=== PATIENT | female | born 1995 | race African-American/Black ===

== ENCOUNTER 2016-09-24 01:57 | Emergency (ER) | payer SELFPAY ==
[2016-09-24 02:03] VITALS: BP 123/91; BMI 35.4
--- NOTE | 2016-09-24 02:10 | DR.GENAD ---
HPI - PCP Primary Care Physician: NFD - Complaint/Symptoms Chief Complaint:: PT STATES' MAINLY MY STOMACH HURTS BUT I'M [employer] AND I WAS RUNNING A FEVER, I TOOK A MOTRIN AND IT HELPED WITH THE FEVER, MY STOMACH IS HURTING ME BAD" - Nurses notes reviewed Nurses Notes Review: Yes - Source History Provided: Patient - Mode of Arrival Mode of Arrival: Ambulatory - Timing Onset of Chief Complaint: 09/23/16 Came on: Gradually - Duration Duration: Constant How lon Duration: Days - Location Location: stomach - Severity Severity: Moderate - Modifying Factors Worsens:: unknown - Associated Signs and Symptoms Associated Signs and Symptoms: achy all over PMH - PMH Past Medical History: Yes Past Medical History: GERD Past Surgical History: Yes Surgical History: Ortho Surgery Past Surgical History Comment: RT ANKLE - Family History History of Family Medical Conditions: Yes Family Medical History: Diabetes Mellitus, Cancer, [place], Coronary Artery Disease, Heart Failure, Hypertension - Social History Does any household member use tobacco: No Alcohol Use: None Do you use any recreational Drugs:: No Lives With: Family Lives Where: Home - infectious screening In the last 2 months have you had wt loss of >10#?: NO Have you had fever, night sweats or hemotysis?: No Have you traveled outside the country in the last 6 months?: No Isolation: Standard ROS - Review of Systems Constitutional: No Symptoms Reported Eyes: No Symptoms Reported ENTM: No Symptoms Reported Respiratoy: No Symptoms Reported Cardiovascular: No Symptoms Reported Gastrointestinal/Abdominal: Abdominal Pain Genitourinary: No Symptoms Reported Neurological: No Symptoms Reported Musculoskeletal: Muscle Pain Integumentary: No Symptoms Reported Hematologic/Lymphatic: No Symptoms Reported Endocrine: No Symptoms Reported Psychiatric: No Symptoms Reported PE - Vital Signs Vitals: Temperature 97.6 F Pulse Rate 100 Respiratory Rate 16 Blood Pressure [Right Arm] 111/79 Blood Pressure 123/91 O2 Sat by Pulse Oximetry 100 - General Limitations: No Limitations General Appearance: Alert, In No Apparent Distress - Head Head Exam: Normal Inspection - Eyes Eye exam: Normal Appearance, EOMI. negative: Scleral Icterus, Conjunctival Injection - ENT ENT Exam: Normal Exam External Ear Exam: Normal External Inspection Nose Exam: Normal Nose Exam Mouth Exam: Normal Inspection Throat Exam: Normal Inspection - Neck Neck Exam: Normal Inspection, Full ROM, Trachea Midline - Chest Chest Inspection: Normal Inspection - Respiratory Respiratory Exam: Normal Lung Sounds Bilat. negative: Accessory Muscle Use, Respiratory Distress Respiratory Exam: Bilateral Clear to Auscultation - Cardiovascular Cardiovascular Exam: Regular Rate - Abdominal Exam Abdominal Exam: Normal Inspection, Normal Bowel Sounds, Soft. negative: Distention, Tenderness, Guarding - Extremities Extremities Exam: Normal Inspection - Back Back Exam: Normal Inspection - Neurologic Neurological Exam: Alert, Oriented X3, CN II-XII Intact - Psychiatric Psychiatric Exam: Normal Mood - Skin Skin Exam: Intact, Normal Color ROR - Labs Reviewed Laboratory: Specimen Type Clean catch urine 09/24/16 02:20 Urine Color Yellow (YELLOW) 09/24/16 02:20 Urine Appearance Hazy (CLEAR) 09/24/16 02:20 Urine pH 6.0 (5.0 - 8.0) 09/24/16 02:20 Ur Specific [place] 1.025 (1.000-1.030) 09/24/16 02:20 Urine Protein 1+ (NEGATIVE) 09/24/16 02:20 Urine Glucose (UA) Negative (NEGATIVE) 09/24/16 02:20 Urine Ketones Negative (NEGATIVE) 09/24/16 02:20 Urine Occult Blood 2+ (NEGATIVE) 09/24/16 02:20 Urine Nitrite Negative (NEGATIVE) 09/24/16 02:20 Urine Bilirubin Negative (NEGATIVE) 09/24/16 02:20 Urine Urobilinogen 1+ (NORMAL) 09/24/16 02:20 Ur Leukocyte Esterase Negative (NEGATIVE) 09/24/16 02:20 Urine RBC 0-3 /HPF (NEGATIVE) 09/24/16 02:20 Urine WBC 0-3 /HPF (NEGATIVE) 09/24/16 02:20 Ur Squamous Epith Cells Numerous /HPF (NEGATIVE) 09/24/16 02:20 Amorphous Sediment Trace /HPF (NEGATIVE) 09/24/16 02:20 Urine Bacteria Trace /HPF (NEGATIVE) 09/24/16 02:20 Urine Mucus Few /HPF (NEGATIVE) 09/24/16 02:20 Ur Culture Indicated? No/not indicated 09/24/16 02:20 Urine Opiates Screen Negative (NEG=<300) 09/24/16 02:20 Urine Methadone Screen Negative (NEG=<300) 09/24/16 02:20 Ur Barbiturates Screen Negative (NEG=<200) 09/24/16 02:20 Ur Phencyclidine Scrn Negative (NEG=<25) 09/24/16 02:20 Ur Amphetamines Screen Negative (NEG=<1000) 09/24/16 02:20 U Benzodiazepines Scrn Negative (NEG=<200) 09/24/16 02:20 Urine Cocaine Screen Negative (NEG=<300) 09/24/16 02:20 U Marijuana (THC) Screen Negative (NEG=<50) 09/24/16 02:20 H. pylori IgG Antibody Negative (NEGATIVE) 09/24/16 02:37 - Diagnosis Discharge Problem: Abdominal pain Qualifiers: Abdominal location: epigastric Qualified Code(s): R10.13 - Epigastric pain - Discharge Plan Condition: Stable Prescriptions: Famotidine-Calcium Carbonate-M [Pepcid Complete 10-800-165 mg] 1 chw PO BID #30 chw - Follow ups/Referrals Follow ups/Referrals: ISAI CLARKE [STAFF PHYSICIAN] - 3 days NFD,None [Primary Care Provider] - 3 days - Instructions Instructions: Gastritis, Adult
[2016-09-24 02:34] LABS: BILIRUBIN,URINE NEGATIVE (NEGATIVE); BLOOD/HEMOGLOBIN,URINE 2+ (NEGATIVE); GLUCOSE, URINE NEGATIVE (NEGATIVE); KETONES,URINE NEGATIVE (NEGATIVE); LEUKOCYTE ESTERASE ,URINE NEGATIVE (NEGATIVE); NITRITES,URINE NEGATIVE (NEGATIVE); PROTEIN,URINE 1+ (NEGATIVE); UROBILINOGEN,URINE 1+ (NORMAL)
[2016-09-24] MEDS ORDERED: LEVSIN/MAALOX/LIDOC VISC PO ONE (02:55)
[2016-09-24] MEDS ORDERED: LEVSIN/MAALOX/LIDOC VISC ONE (02:57)
[2016-09-24 03:07] LABS: AMORPHOUS SEDIMENT,UR TRACE /HPF (NEGATIVE); APPEARANCE,URINE HAZY (CLEAR); BACTERIA,URINE TRACE /HPF (NEGATIVE); COLOR,URINE YELLOW (YELLOW); MUCUS,URINE FEW /HPF (NEGATIVE); RBC,URINE 0-3 /HPF (NEGATIVE); SQUAMOUS EPITHELIAL CELL,UR NUMEROUS /HPF (NEGATIVE)
== END 2016-09-24 03:20 | disposition home or self-care (01) ==
LOC: ER 01:57
DX: R10.13 Epigastric pain (principal)
CPT/HCPCS: 36415; 80307; 81001; 86677; 99282; 99283; G0434

== ENCOUNTER 2016-11-08 06:47 | Emergency (ER) | payer SELFPAY ==
[2016-11-08 06:51] VITALS: BP 115/72; BMI 33.6
[2016-11-08 07:49] LABS: BASOPHILS % (AUTO) 0.4 % (0.2-1.0); EOSINOPHILS % (AUTO) 0.5 % (0.9-2.9); HEMATOCRIT 35.2 % (36.0-47.0); HEMOGLOBIN 11.9 g/dL (12.0-16.0); LYMPHOCYTES # (AUTO) 2.6 X10^3/uL (1.3-2.9); LYMPHOCYTES % (AUTO) 32.3 % (21.0-51.0); MEAN CORPUSCULAR HEMOGLOBIN 27.2 pg (27.0-34.0); MEAN CORPUSCULAR HGB CONC 33.7 g/dL (33.0-35.0); MEAN CORPUSCULAR VOLUME 80.7 fL (80.0-100.0); MEAN PLATELET VOLUME 8.5 fL (7.4-11.0); MONOCYTES # (AUTO) 0.9 x10^3/uL (0.3-0.8); MONOCYTES % (AUTO) 10.7 % (0.0-13.0); NEUTROPHILS # (AUTO) 4.5 x10^3/uL (2.2-4.8); NEUTROPHILS % (AUTO) 56.1 % (42.0-75.0); PLATELET COUNT 245 X10^3/uL (150.0-450.0); RED BLOOD COUNT 4.36 X10^6/uL (3.5-5.4); RED CELL DISTRIBUTION WIDTH 13.5 % (11.6-16.5); WHITE BLOOD COUNT 8.1 X10^3/uL (3.6-10.0)
--- NOTE | 2016-11-08 07:50 | DR.GENAD ---
HPI - PCP Primary Care Physician: ELIAS - HPI Comment HPI Comment: HISTORY BELOW. - Complaint/Symptoms Chief Complaint Doctors Comments: N/V/D TIMES TIMES ONE DAY. PERIOD LATE. ALWAAYS IRREGULAR. CHILD HAD STOMACH VIRUS BEFORE HE SYMTOM STARTED. NO FEVER. Chief Complaint:: "I have felt sick for a couple of days now but last night I started thowing up. I have had diarhea for about 2 days though." - Nurses notes reviewed Nurses Notes Review: Yes - Source History Provided: Patient - Mode of Arrival Mode of Arrival: Ambulatory - Timing Onset of Chief Complaint: 11/05/16 Came on: Suddenly - Duration Duration: Constant Duration: Days - Severity Severity: Moderate PMH - PMH Past Medical History: No Past Medical History: GERD Past Surgical History: No Surgical History: Ortho Surgery - Family History History of Family Medical Conditions: Yes Family Medical History: Diabetes Mellitus, Cancer, Hypertension - Social History Does patient currently use any type of tobacco product: No Have you used tobacco products in the last 12 months: No Type of Tobacco Use: None Does any household member use tobacco: No Alcohol Use: None Do you use any recreational Drugs:: No Lives With: Family Lives Where: Home - infectious screening In the last 2 months have you had wt loss of >10#?: NO Have you had fever, night sweats or hemotysis?: No Have you traveled outside the country in the last 6 months?: No Isolation: Standard ROS - Review of Systems Constitutional: Weakness. negative: Chills Eyes: No Symptoms Reported ENTM: No Symptoms Reported Respiratoy: No Symptoms Reported Cardiovascular: No Symptoms Reported Gastrointestinal/Abdominal: Abdominal Pain, Diarrhea, Nausea, Vomiting Genitourinary: No Symptoms Reported. negative: Dysuria, Frequency, Hematuria Neurological: Headache, Weakness Musculoskeletal: No Symptoms Reported Integumentary: No Symptoms Reported Hematologic/Lymphatic: No Symptoms Reported Endocrine: No Symptoms Reported All Other Systems: Reviewed and Negative PE - Vital Signs Vitals: Temperature 98.2 F Pulse Rate 93 Respiratory Rate 15 Blood Pressure [Right Arm] 111/79 Blood Pressure 115/72 O2 Sat by Pulse Oximetry 100 - General Limitations: No Limitations General Appearance: Alert - Head Head Exam: Normal Inspection - Eyes Eye exam: Normal Appearance - ENT ENT Exam: Normal Exam External Ear Exam: Normal External Inspection TM/Canal Exam: Bilateral Normal Nose Exam: Normal Nose Exam Mouth Exam: Normal Inspection Throat Exam: Normal Inspection - Neck Neck Exam: Normal Inspection - Chest Chest Inspection: Normal Inspection - Respiratory Respiratory Exam: Normal Lung Sounds Bilat Respiratory Exam: Bilateral Clear to Auscultation - Cardiovascular Cardiovascular Exam: Regular Rate, Normal Rhythm, Normal Heart Sounds - Abdominal Exam Abdominal Exam: Normal Bowel Sounds, Soft, Tenderness Abdominal Tenderness: Diffuse, Mild - Extremities Extremities Exam: Normal Inspection - Back Back Exam: Normal Inspection - Neurologic Neurological Exam: Alert, Oriented X3 - Psychiatric Psychiatric Exam: Normal Affect - Skin Skin Exam: Normal Color [facility] - Additional Information Additional Information Obtained From: Family - Differential Diagnosis Differential Diagnosis: GASTROENTERITIS, ABDOMINAL PAIN, LATE PERIOD. Course - Treatment Treatment: SEE ORDERS. - Education/Counseling Education/Counseling: Patient, Education Educated On: Diagnosis, Needs for Follow Up ROR - Labs Reviewed Laboratory Results Reviewed?: Yes Result Diagrams: 11/08/16 07:29 11/08/16 07:29 Laboratory: WBC 8.1 X10^3/uL (3.6-10.0) 11/08/16 07: RBC 4.36 X10^6/uL (3.5-5.4) 11/08/16 07: Hgb 11.9 g/dL (12.0-16.0) L 11/08/16 07: Hct 35.2 % (36.0-47.0) L 11/08/16 07: MCV 80.7 fL (80.0-100.0) 11/08/16 07: MCH 27.2 pg (27.0-34.0) 11/08/16 07: MCHC 33.7 g/dL (33.0-35.0) 11/08/16 07: RDW 13.5 % (11.6-16.5) 11/08/16 07: Plt Count 245 X10^3/uL (150.0-450.0) 11/08/16 07: MPV 8.5 fL (7.4-11.0) 11/08/16 07: Neut % 56.1 % (42.0-75.0) 11/08/16 07: Lymph % 32.3 % (21.0-51.0) 11/08/16 07: [place] % 10.7 % (0.0-13.0) 11/08/16 07: Eos % 0.5 % (0.9-2.9) L 11/08/16 07:29 Baso % 0.4 % (0.2-1.0) 11/08/16 07:29 Neut # 4.5 x10^3/uL (2.2-4.8) 11/08/16 07:29 Lymph # 2.6 X10^3/uL (1.3-2.9) 11/08/16 07:29 [place] # 0.9 x10^3/uL (0.3-0.8) H 11/08/16 07:29 Eos # 0.0 x10^3/uL (0.0-0.2) 11/08/16 07: Baso # 0.0 X10^3/uL (0.0-0.1) 11/08/16 07:29 Absolute Nucleated RBC 0.1 /100WBC 11/08/16 07:29 Sodium 140 mmol/L (136-145) 11/08/16 07:29 Corrected Sodium TNP 11/08/16 07:29 Potassium 3.9 mmol/L (3.5-5.1) 11/08/16 07:29 Chloride 104 mmol/L (98-107) 11/08/16 07:29 Carbon Dioxide 27.0 mmol/L (21-32) 11/08/16 07:29 BUN 13 mg/dL (7-18) 11/08/16 07:29 Creatinine 0.60 mg/dL (0.55-1.02) 11/08/16 07:29 Est GFR (MDRD) Af Amer > 60 (>60) 11/08/16 07:29 Est GFR (MDRD) Non-Af > 60 (>60) 11/08/16 07:29 Glucose 89 mg/dL (65-99) 11/08/16 07:29 Calcium 8.3 mg/dL (8.5-10.1) L 11/08/16 07:29 Corrected Calcium TNP 11/08/16 07:29 Total Bilirubin 0.30 mg/dL (0.2-1.0) 11/08/16 07:29 AST 18 Units/L (15-37) 11/08/16 07:29 ALT 39 Units/L (12-78) 11/08/16 07:29 Alkaline Phosphatase 105 Units/L (46-116) 11/08/16 07:29 Total Protein 7.3 g/dL (6.4-8.2) 11/08/16 07:29 Albumin 3.7 g/dL (3.4-5.0) 11/08/16 07: Globulin 3.6 g/dL (2.5-4.5) 11/08/16 07:29 Albumin/Globulin Ratio 1.0 Ratio (1.1-2.1) L 11/08/16 07:29 Amylase 41 Units/L (25-115) 11/08/16 07: Lipase 82 Units/L (73-393) 11/08/16 07:29 HCG, Qual Negative <10 mIU/mL 11/08/16 07:29 Specimen Type Clean catch urine 11/08/16 07:33 Urine Color Yellow (YELLOW) 11/08/16 07:33 Urine Appearance Slightly hazy (CLEAR) 11/08/16 07:33 Urine pH 5.0 (5.0 - 8.0) 11/08/16 07:33 Ur Specific [place] 1.030 (1.000-1.030) 11/08/16 07:33 Urine Protein 1+ (NEGATIVE) 11/08/16 07:33 Urine Glucose (UA) Negative (NEGATIVE) 11/08/16 07:33 Urine Ketones 1+ (NEGATIVE) 11/08/16 07:33 Urine Occult Blood Negative (NEGATIVE) 11/08/16 07:33 Urine Nitrite Negative (NEGATIVE) 11/08/16 07:33 Urine Bilirubin Negative (NEGATIVE) 11/08/16 07:33 Urine Urobilinogen 1+ (NORMAL) 11/08/16 07:33 Ur Leukocyte Esterase Negative (NEGATIVE) 11/08/16 07:33 Urine RBC Negative /HPF (NEGATIVE) 11/08/16 07:33 Urine WBC Rare /HPF (NEGATIVE) 11/08/16 07:33 Ur Squamous Epith Cells Moderate /HPF (NEGATIVE) 11/08/16 07:33 Urine Bacteria Negative /HPF (NEGATIVE) 11/08/16 07:33 Ur Culture Indicated? No/not indicated 11/08/16 07:33 - Diagnosis Discharge Problem: Gastroenteritis - Discharge Plan Disposition: 01 HOME, SELF-CARE Condition: Stable Prescriptions: Diphenoxylate/Atropine [LOMOTIL TAB *] 1 tab PO TID PRN #15 tab PRN Reason: Ondansetron HCl [ZOFRAN TAB 4 MG *] 4 mg PO Q8H PRN #12 tab PRN Reason: Nausea/Vomiting - Follow ups/Referrals Follow ups/Referrals: NFD,None [Primary Care Provider] - 3 days - Instructions Instructions: Viral Gastroenteritis, Adult, [id number] Additional Instructions: RETURN TO ED IF WORSE.
[2016-11-08 07:58] LABS: BILIRUBIN,URINE NEGATIVE (NEGATIVE); BLOOD/HEMOGLOBIN,URINE NEGATIVE (NEGATIVE); GLUCOSE, URINE NEGATIVE (NEGATIVE); KETONES,URINE 1+ (NEGATIVE); LEUKOCYTE ESTERASE ,URINE NEGATIVE (NEGATIVE); NITRITES,URINE NEGATIVE (NEGATIVE); PROTEIN,URINE 1+ (NEGATIVE); UROBILINOGEN,URINE 1+ (NORMAL)
[2016-11-08 08:14] LABS: ALANINE AMINOTRANSFERASE 39 Units/L (12-78); ALBUMIN 3.7 g/dL (3.4-5.0); ALKALINE PHOSPHATASE 105 Units/L (46-116); AMYLASE 41 Units/L (25-115); ASPARTATE AMINO TRANSFERASE 18 Units/L (15-37); BLOOD UREA NITROGEN 13 mg/dL (7-18); CALCIUM 8.3 mg/dL (8.5-10.1); CHLORIDE 104 mmol/L (98-107); GLUCOSE 89 mg/dL (65-99); LIPASE 82 Units/L (73-393); SODIUM 140 mmol/L (136-145); TOTAL PROTEIN 7.3 g/dL (6.4-8.2); eGFR BLACK RACES > 60 (>60); eGFR NON BLACK RACES > 60 (>60)
[2016-11-08 08:20] LABS: APPEARANCE,URINE SLIGHTLY HAZY (CLEAR); COLOR,URINE YELLOW (YELLOW)
[2016-11-08 08:22] LABS: BACTERIA,URINE NEGATIVE /HPF (NEGATIVE); RBC,URINE NEGATIVE /HPF (NEGATIVE); SQUAMOUS EPITHELIAL CELL,UR MODERATE /HPF (NEGATIVE)
[2016-11-08 08:42] LABS: SERUM PREGNANCY TEST, QUAL NEGATIVE <10 mIU/mL
== END 2016-11-08 08:44 | disposition home or self-care (01) ==
LOC: ER 06:47
DX: K52.89 Other specified noninfective gastroenteritis and colitis (principal)
CPT/HCPCS: 36415; 80053; 81001; 82150; 83690; 84703; 85025; 99282

== ENCOUNTER 2017-02-07 07:05 | Emergency (ER) | payer SELFPAY ==
[2017-02-07 07:10] VITALS: BP 128/75; BMI 35.4
[2017-02-07] MEDS ORDERED: ZOFRAN INJ 4 MG VIAL IM ONE (07:36)
[2017-02-07] MEDS ORDERED: LOMOTIL PO ONE (07:37)
[2017-02-07] MEDS ORDERED: ZOFRAN INJ 4 MG VIAL ONE (07:40)
[2017-02-07] MEDS ORDERED: LOMOTIL ONE (07:40)
--- NOTE | 2017-02-07 07:42 | DR.GENAD ---
HPI - PCP Primary Care Physician: NFD - Complaint/Symptoms Chief Complaint Doctors Comments: Patient complains of vomiting with diarrhea for the past two days. states she has several people sick at her house with simlar problems. states she has had diarrhea x3 and vomited x4 in the last 6 - 12 hours. She denies fever, chills, cold or cough. states her appetite is good but she has not had anything to eat recently because she has been working. states her last period was two days ago and she is not taking any contraceptives. States she smokes at [employer] but it is not a regular thing. She denies alcohol or drug usage. She denies abdominal or chest pain. She denies dysuria, dianelys or hematuria. Chief Complaint:: "THROWING UP AND DIARRHEA" - Nurses notes reviewed Nurses Notes Review: Yes - Source History Provided: Patient - Mode of Arrival Mode of Arrival: Ambulatory - Timing Onset of Chief Complaint: 02/05/17 Came on: Gradually - Duration Duration: Intermittent How lon Duration: Hours - Location Location: vomiting and diarrhea - Severity Severity: Mild - Modifying Factors Worsens:: nothing Improves:: nothing PMH - PMH Past Medical History: No Past Medical History: GERD Past Surgical History: No Surgical History: Ortho Surgery - Family History History of Family Medical Conditions: No Family Medical History: Diabetes Mellitus, Cancer, Hypertension - Social History Type of Tobacco Use: Cigarettes Does any household member use tobacco: No Alcohol Use: None Do you use any recreational Drugs:: No Lives With: Family Lives Where: Home - infectious screening In the last 2 months have you had wt loss of >10#?: NO Have you had fever, night sweats or hemotysis?: No Have you traveled outside the country in the last 6 months?: No Isolation: Standard ROS - Review of Systems Constitutional: No Symptoms Reported. negative: See HPI, Chills, Diaphoresis, Fever, Malaise, Weakness, Irritable, Fatigue, Loss of Appetite, Other Eyes: No Symptoms Reported ENTM: No Symptoms Reported, Nose Discharge, Nose Congestion. negative: See HPI , Ear Pain, Ear Discharge, Pulling on Ears, Hearing Loss, Nose Pain, Epistaxis, Mouth Pain, Mouth Swelling, Loose Teeth, Drooling, Throat Pain, Throat Swelling , Ear Foreign Body Respiratoy: No Symptoms Reported. negative: See HPI, Productive Cough, Non- Productive Cough, Moist Cough, Dry Cough, Hacking Cough, Barking Cough, Brassy Cough, Orthopnea, Short of Breath, Stridor, Wheezing, Hemoptysis, Other Cardiovascular: No Symptoms Reported Gastrointestinal/Abdominal: No Symptoms Reported, Diarrhea, Nausea, Vomiting. negative: See HPI, Abdominal Pain, Constipation, Food Intolerance, Other Genitourinary: No Symptoms Reported. negative: See HPI, Discharge, Dysuria, Frequency, Hematuria, Pain, Bleeding, Other Neurological: No Symptoms Reported Musculoskeletal: No Symptoms Reported Integumentary: No Symptoms Reported. negative: See HPI, Change in Color, Change in Hair/Nails, Dryness, Lesions, Lumps, Rash, Itching, Wound, Bruises, Juandice, Other Hematologic/Lymphatic: No Symptoms Reported Endocrine: No Symptoms Reported Psychiatric: No Symptoms Reported. negative: See HPI, Anxiety, Depression, Hallucinations, Excessive crying, Suicidal, Other PE - Vital Signs Vitals: Temperature 98.6 F Pulse Rate 88 Respiratory Rate 20 Blood Pressure [Right Arm] 111/79 Blood Pressure 128/75 O2 Sat by Pulse Oximetry 100 - General Limitations: No Limitations General Appearance: Alert, In No Apparent Distress - Head Head Exam: Normal Inspection, Atraumatic, Normocephalic - Eyes Eye exam: Normal Appearance, PERRL, EOMI. negative: Scleral Icterus, Conjunctival Injection, Nystagmus, Miosis, Mydrasis, Periorbital Swelling, Periorbital Tenderness, Other - ENT ENT Exam: Normal Exam, Normal Oropharynx, Normal External Ear Exam, Mucous Membranes Moist, TM's Normal Bilaterally External Ear Exam: Normal External Inspection TM/Canal Exam: Bilateral Normal Nose Exam: Normal Nose Exam. negative: Sinus Tenderness, Nasal Deviation, Crepitus, Septal Hematoma, Laceration, Abrasion, Other Mouth Exam: Normal Inspection Throat Exam: Normal Inspection. negative: Tonsillar Erythema, Tonsillomegaly, Tonsillar Exudate, R Peritonsillar Mass, L Peritonsillar Mass, Muffled Voice, Other - Neck Neck Exam: Normal Inspection, Full ROM, Trachea Midline. negative: Tenderness, Meningismus, Lymphadenopathy, Thyromegaly, Other - Chest Chest Inspection: Normal Inspection, Symmetric Chest Wall Rise - Respiratory Respiratory Exam: Normal Lung Sounds Bilat Respiratory Exam: Bilateral Clear to Auscultation - Cardiovascular Cardiovascular Exam: Regular Rate, Normal Rhythm, Normal Heart Sounds. negative : Bradycardia, Tachycardia, Irregular Rhythm, Systolic Murmur, Diastolic Murmur , Rubs, Gallop, Clicks, JVD, +S1, +S2, +S3, +S4, Other - Abdominal Exam Abdominal Exam: Normal Inspection, Normal Bowel Sounds, Soft. negative: Distention, Tenderness, Guarding, Rebound, Rigidity, Dimnished Bowel Sounds, Hyperactive Bowel Sounds, Hypoactive Bowel Sounds, Organomegaly, Trauma, Incision, Ascites, Mass, Bruit, Pulsatile Mass, Hernia, Other Abdominal Tenderness: negative: RUQ, RLQ, LUQ, LLQ, Epigastrium, Suprapubic, Diffuse, Mild, Moderate, Severe, Other - Extremities Extremities Exam: Normal Inspection, Full ROM, Normal Capillary Refill. negative: Tenderness, Edema, Joint Swelling, Calf Tenderness, Other - Back Back Exam: Normal Inspection, Full ROM. negative: Tenderness, (R) CVA Tenderness, (L) CVA Tenderness, Muscle Spasm, Paraspinal Tenderness, Vertebral Tenderness, Rashes, (R) Sciatic Notch Tenderness, (L) Sciatic Notch Tendern, (R ) Straight Leg Raise, (L) Straight Leg Raise, Other - Neurologic Neurological Exam: Alert, Oriented X3, CN II-XII Intact, Normal Gait, Reflexes Normal - Psychiatric Psychiatric Exam: Normal Affect, Normal Mood - Skin Skin Exam: Warm, Dry, Intact, Normal Color. negative: Rash, Cyanosis, Diaphoresis, Erythema, Pallor, Mottled, Other ROR - Labs Reviewed Laboratory Results Reviewed?: Yes (all labs and x-ray results reviewed and discussed with patient) Result Diagrams: 02/07/17 08:16 02/07/17 08:16 Laboratory: WBC 7.0 X10^3/uL (3.6-10.0) 02/07/17 08:16 RBC 4.11 X10^6/uL (3.5-5.4) 02/07/17 08:16 Hgb 11.1 g/dL (12.0-16.0) L 02/07/17 08:16 Hct 33.6 % (36.0-47.0) L 02/07/17 08:16 MCV 81.6 fL (80.0-100.0) 02/07/17 08:16 MCH 27.0 pg (27.0-34.0) 02/07/17 08:16 MCHC 33.1 g/dL (33.0-35.0) 02/07/17 08:16 RDW 13.3 % (11.6-16.5) 02/07/17 08:16 Plt Count 244 X10^3/uL (150.0-450.0) 02/07/17 08:16 MPV 8.4 fL (7.4-11.0) 02/07/17 08:16 Neut % 52.8 % (42.0-75.0) 02/07/17 08:16 Lymph % 35.6 % (21.0-51.0) 02/07/17 08:16 [place] % 10.0 % (0.0-13.0) 02/07/17 08:16 Eos % 1.1 % (0.9-2.9) 02/07/17 08:16 Baso % 0.5 % (0.2-1.0) 02/07/17 08:16 Neut # 3.7 x10^3/uL (2.2-4.8) 02/07/17 08:16 Lymph # 2.5 X10^3/uL (1.3-2.9) 02/07/17 08:16 [place] # 0.7 x10^3/uL (0.3-0.8) 02/07/17 08:16 Eos # 0.1 x10^3/uL (0.0-0.2) 02/07/17 08:16 Baso # 0.0 X10^3/uL (0.0-0.1) 02/07/17 08:16 Absolute Nucleated RBC 0.0 /100WBC 02/07/17 08:16 Sodium 141 mmol/L (136-145) 02/07/17 08:16 Corrected Sodium TNP 02/07/17 08:16 Potassium 4.1 mmol/L (3.5-5.1) 02/07/17 08:16 Chloride 105 mmol/L (98-107) 02/07/17 08:16 Carbon Dioxide 28.0 mmol/L (21-32) 02/07/17 08:16 BUN 13 mg/dL (7-18) 02/07/17 08:16 Creatinine 0.66 mg/dL (0.55-1.02) 02/07/17 08:16 Est GFR (MDRD) Af Amer > 60 (>60) 02/07/17 08:16 Est GFR (MDRD) Non-Af > 60 (>60) 02/07/17 08:16 Glucose 90 mg/dL (65-99) 02/07/17 08:16 Calcium 8.6 mg/dL (8.5-10.1) 02/07/17 08:16 Corrected Calcium TNP 02/07/17 08:16 Total Bilirubin 0.20 mg/dL (0.2-1.0) 02/07/17 08:16 AST 18 Units/L (15-37) 02/07/17 08:16 ALT 29 Units/L (12-78) 02/07/17 08:16 Alkaline Phosphatase 103 Units/L (46-116) 02/07/17 08:16 Total Protein 7.0 g/dL (6.4-8.2) 02/07/17 08:16 Albumin 3.6 g/dL (3.4-5.0) 02/07/17 08:16 Globulin 3.4 g/dL (2.5-4.5) 02/07/17 08:16 Albumin/Globulin Ratio 1.1 Ratio (1.1-2.1) 02/07/17 08:16 Amylase 45 Units/L (25-115) 02/07/17 08:16 Lipase 112 Units/L (73-393) 02/07/17 08:16 HCG, Qual Negative <10 mIU/mL 02/07/17 08:16 Specimen Type Clean catch urine 02/07/17 08:25 Urine Color Yellow (YELLOW) 02/07/17 08:25 Urine Appearance Hazy (CLEAR) 02/07/17 08:25 Urine pH 6.0 (5.0 - 8.0) 02/07/17 08:25 Ur Specific [place] 1.020 (1.000-1.030) 02/07/17 08:25 Urine Protein 1+ (NEGATIVE) 02/07/17 08:25 Urine Glucose (UA) Negative (NEGATIVE) 02/07/17 08:25 Urine Ketones Negative (NEGATIVE) 02/07/17 08:25 Urine Occult Blood Negative (NEGATIVE) 02/07/17 08:25 Urine Nitrite Negative (NEGATIVE) 02/07/17 08:25 Urine Bilirubin Negative (NEGATIVE) 02/07/17 08:25 Urine Urobilinogen 1+ (NORMAL) 02/07/17 08:25 Ur Leukocyte Esterase 2+ (NEGATIVE) 02/07/17 08:25 Urine RBC Rare /HPF (NEGATIVE) 02/07/17 08:25 Urine WBC 03 - 06 /HPF (NEGATIVE) 02/07/17 08:25 Ur Squamous Epith Cells Many /HPF (NEGATIVE) 02/07/17 08:25 Amorphous Sediment 1+ /HPF (NEGATIVE) 02/07/17 08:25 Urine Bacteria Trace /HPF (NEGATIVE) 02/07/17 08:25 Urine Mucus Moderate /HPF (NEGATIVE) 02/07/17 08:25 Ur Culture Indicated? No/not indicated 02/07/17 08:25 - XRAY XRAY Interpreted by: Radiologist (abbdominal series: No acute cardiopulmonary disease. No evidence for acute abdominal patholog identified) - Diagnosis Discharge Problem: Acute gastroenteritis - Discharge Plan Disposition: 01 HOME, SELF-CARE Condition: Stable Prescriptions: Diphenoxylate/Atropine [Lomotil] 1 tab PO TID #21 tab Ondansetron HCl [Zofran Tab 4 mg] 4 mg PO Q8H PRN #14 tab PRN Reason: Nausea/Vomiting - Follow ups/Referrals Follow ups/Referrals: ELISA,None [Primary Care Provider] - 3 days VELASQUEZ MANRIQUEZ [STAFF PHYSICIAN] - 3 days - Instructions Instructions: Viral Gastroenteritis, Adult, [id number], Nausea, Adult, Easy- to-Read
--- NOTE | 2017-02-07 08:28 | RAD ---
HISTORY: Throwing up. Diarrhea. Study: Acute abdominal series Comparison: October 09, 2013. Findings: The trachea is midline. The cardiac silhouette is unremarkable. The lungs are clear without focal i nfiltrate or effusion. The bony thorax is unremarkable. Flat plate and upright evaluation of the abdomen demonstrates a normal bowel gas pattern. There is m oderate dilatation of what appears to be a loop of descending colon and left lower quadrant. No patho logical soft tissue mass or calcification can be observed. The bony structures are grossly intact. IMPRESSION: 1. No acute cardiopulmonary disease. 2. No evidence for acute abdominal pathology identified. Reported By:
[2017-02-07 08:29] LABS: BASOPHILS % (AUTO) 0.5 % (0.2-1.0); EOSINOPHILS # (AUTO) 0.1 x10^3/uL (0.0-0.2); EOSINOPHILS % (AUTO) 1.1 % (0.9-2.9); HEMATOCRIT 33.6 % (36.0-47.0); HEMOGLOBIN 11.1 g/dL (12.0-16.0); LYMPHOCYTES # (AUTO) 2.5 X10^3/uL (1.3-2.9); LYMPHOCYTES % (AUTO) 35.6 % (21.0-51.0); MEAN CORPUSCULAR HGB CONC 33.1 g/dL (33.0-35.0); MEAN CORPUSCULAR VOLUME 81.6 fL (80.0-100.0); MEAN PLATELET VOLUME 8.4 fL (7.4-11.0); MONOCYTES # (AUTO) 0.7 x10^3/uL (0.3-0.8); NEUTROPHILS # (AUTO) 3.7 x10^3/uL (2.2-4.8); NEUTROPHILS % (AUTO) 52.8 % (42.0-75.0); PLATELET COUNT 244 X10^3/uL (150.0-450.0); RED BLOOD COUNT 4.11 X10^6/uL (3.5-5.4); RED CELL DISTRIBUTION WIDTH 13.3 % (11.6-16.5)
[2017-02-07 08:32] LABS: BILIRUBIN,URINE NEGATIVE (NEGATIVE); BLOOD/HEMOGLOBIN,URINE NEGATIVE (NEGATIVE); GLUCOSE, URINE NEGATIVE (NEGATIVE); KETONES,URINE NEGATIVE (NEGATIVE); LEUKOCYTE ESTERASE ,URINE 2+ (NEGATIVE); NITRITES,URINE NEGATIVE (NEGATIVE); PROTEIN,URINE 1+ (NEGATIVE); UROBILINOGEN,URINE 1+ (NORMAL)
[2017-02-07 08:38] LABS: ALANINE AMINOTRANSFERASE 29 Units/L (12-78); ALBUMIN 3.6 g/dL (3.4-5.0); ALKALINE PHOSPHATASE 103 Units/L (46-116); AMYLASE 45 Units/L (25-115); ASPARTATE AMINO TRANSFERASE 18 Units/L (15-37); BLOOD UREA NITROGEN 13 mg/dL (7-18); CALCIUM 8.6 mg/dL (8.5-10.1); CHLORIDE 105 mmol/L (98-107); CREATININE 0.66 mg/dL (0.55-1.02); LIPASE 112 Units/L (73-393); SODIUM 141 mmol/L (136-145); eGFR BLACK RACES > 60 (>60); eGFR NON BLACK RACES > 60 (>60)
[2017-02-07 08:40] LABS: SERUM PREGNANCY TEST, QUAL NEGATIVE <10 mIU/mL
[2017-02-07 08:43] LABS: APPEARANCE,URINE HAZY (CLEAR); COLOR,URINE YELLOW (YELLOW)
[2017-02-07 08:53] LABS: RBC,URINE RARE /HPF (NEGATIVE)
[2017-02-07 08:54] LABS: AMORPHOUS SEDIMENT,UR 1+ /HPF (NEGATIVE); BACTERIA,URINE TRACE /HPF (NEGATIVE); MUCUS,URINE MODERATE /HPF (NEGATIVE); SQUAMOUS EPITHELIAL CELL,UR MANY /HPF (NEGATIVE)
== END 2017-02-07 09:10 | disposition home or self-care (01) ==
LOC: ER 07:14
DX: K52.89 Other specified noninfective gastroenteritis and colitis (principal)
CPT/HCPCS: 36415; 74022; 80053; 81001; 82150; 83690; 84703; 85025; 99282; 99283; J2405

== ENCOUNTER 2017-05-11 00:38 | Emergency (ER) | payer SELFPAY ==
[2017-05-11 00:44] VITALS: BP 119/68; BMI 39.4
--- NOTE | 2017-05-11 02:02 | DR.GENAD ---
HPI - PCP Primary Care Physician: NFD - Complaint/Symptoms Chief Complaint Doctors Comments: Patient presents with complaint of hands turning cyanotic for the past couple of days. She denies any cardiopulmonary disease. She denies any trauma. Chief Complaint:: HANDS/FINGERS TURNING BLUE AND NUMB FOR SEVERAL DAYS Self Treatment fo Chief Complaint: NO TREATMENT - Source History Provided: Patient - Mode of Arrival Mode of Arrival: Ambulatory - Timing Onset of Chief Complaint: 05/04/17 PMH - PMH Past Medical History: No Past Medical History: GERD Past Surgical History: No Surgical History: Ortho Surgery - Family History History of Family Medical Conditions: No Family Medical History: Diabetes Mellitus, Cancer, Hypertension - Social History Alcohol Use: None Do you use any recreational Drugs:: No Lives With: Alone Lives Where: Home - infectious screening In the last 2 months have you had wt loss of >10#?: NO Have you had fever, night sweats or hemotysis?: No Have you traveled outside the country in the last 6 months?: No Isolation: Standard ROS - Review of Systems Constitutional: No Symptoms Reported Eyes: No Symptoms Reported ENTM: No Symptoms Reported Respiratoy: No Symptoms Reported Cardiovascular: No Symptoms Reported Gastrointestinal/Abdominal: No Symptoms Reported Genitourinary: No Symptoms Reported Neurological: No Symptoms Reported Musculoskeletal: No Symptoms Reported Integumentary: No Symptoms Reported Hematologic/Lymphatic: No Symptoms Reported Endocrine: No Symptoms Reported Psychiatric: No Symptoms Reported All Other Systems: Reviewed and Negative PE - Vital Signs Vitals: Temperature 99.8 F Pulse Rate 101 Respiratory Rate 20 Blood Pressure [Right Arm] 111/79 Blood Pressure 119/68 O2 Sat by Pulse Oximetry 100 - General Limitations: No Limitations General Appearance: Alert, In No Apparent Distress - Head Head Exam: Normal Inspection, Atraumatic - Eyes Eye exam: Normal Appearance, PERRL, EOMI - ENT ENT Exam: Normal Exam External Ear Exam: Normal External Inspection TM/Canal Exam: Bilateral Normal Nose Exam: Normal Nose Exam Mouth Exam: Normal Inspection Throat Exam: Normal Inspection - Neck Neck Exam: Normal Inspection, Full ROM - Chest Chest Inspection: Normal Inspection - Respiratory Respiratory Exam: Normal Lung Sounds Bilat Respiratory Exam: Bilateral Clear to Auscultation - Cardiovascular Cardiovascular Exam: Regular Rate, Normal Rhythm - Abdominal Exam Abdominal Exam: Normal Inspection, Normal Bowel Sounds Abdominal Tenderness: negative: RUQ, RLQ, LUQ, LLQ, Epigastrium, Suprapubic, Diffuse, Mild, Moderate, Severe, Other - Extremities Extremities Exam: Normal Inspection, Full ROM - Back Back Exam: Normal Inspection, Full ROM - Neurologic Neurological Exam: Alert, Oriented X3, CN II-XII Intact - Psychiatric Psychiatric Exam: Normal Affect, Normal Mood - Skin Skin Exam: Warm, Dry ROR - Labs Reviewed Result Diagrams: 05/11/17 02:14 05/11/17 02:14 Laboratory: WBC 7.4 X10^3/uL (3.6-10.0) 05/11/17 02:14 RBC 4.38 X10^6/uL (3.5-5.4) 05/11/17 02:14 Hgb 11.8 g/dL (12.0-16.0) L 05/11/17 02:14 Hct 35.9 % (36.0-47.0) L 05/11/17 02:14 MCV 82.0 fL (80.0-100.0) 05/11/17 02:14 MCH 27.0 pg (27.0-34.0) 05/11/17 02:14 MCHC 32.9 g/dL (33.0-35.0) L 05/11/17 02:14 RDW 15.4 % (11.6-16.5) 05/11/17 02:14 Plt Count 259 X10^3/uL (150.0-450.0) 05/11/17 02:14 MPV 8.5 fL (7.4-11.0) 05/11/17 02:14 Neut % 67.3 % (42.0-75.0) 05/11/17 02:14 Lymph % 21.9 % (21.0-51.0) 05/11/17 02:14 [place] % 10.0 % (0.0-13.0) 05/11/17 02:14 Eos % 0.4 % (0.9-2.9) L 05/11/17 02:14 Baso % 0.4 % (0.2-1.0) 05/11/17 02:14 Neut # 5.0 x10^3/uL (2.2-4.8) H 05/11/17 02:14 Lymph # 1.6 X10^3/uL (1.3-2.9) 05/11/17 02:14 [place]igg # 0.7 x10^3/uL (0.3-0.8) 05/11/17 02:14 Eos # 0.0 x10^3/uL (0.0-0.2) 05/11/17 02:14 Baso # 0.0 X10^3/uL (0.0-0.1) 05/11/17 02:14 Absolute Nucleated RBC 0.0 /100WBC 05/11/17 02:14 Sodium 141 mmol/L (136-145) 05/11/17 02:14 Corrected Sodium 141 mmol/L (136-145) 05/11/17 02:14 Potassium 4.4 mmol/L (3.5-5.1) 05/11/17 02:14 Chloride 105 mmol/L (98-107) 05/11/17 02:14 Carbon Dioxide 28.9 mmol/L (21-32) 05/11/17 02:14 BUN 12 mg/dL (7-18) 05/11/17 02:14 Creatinine 0.74 mg/dL (0.55-1.02) 05/11/17 02:14 Est GFR (MDRD) Af Amer > 60 (>60) 05/11/17 02:14 Est GFR (MDRD) Non-Af > 60 (>60) 05/11/17 02:14 Glucose 117 mg/dL (65-99) H 05/11/17 02:14 Calcium 8.6 mg/dL (8.5-10.1) 05/11/17 02:14 - Diagnosis Discharge Problem: Normal skin exam - Discharge Plan Condition: Stable - Follow ups/Referrals Follow ups/Referrals: NFD,None [Primary Care Provider] - 3 days - Instructions
[2017-05-11 02:26] LABS: BASOPHILS % (AUTO) 0.4 % (0.2-1.0); EOSINOPHILS % (AUTO) 0.4 % (0.9-2.9); HEMATOCRIT 35.9 % (36.0-47.0); HEMOGLOBIN 11.8 g/dL (12.0-16.0); LYMPHOCYTES # (AUTO) 1.6 X10^3/uL (1.3-2.9); LYMPHOCYTES % (AUTO) 21.9 % (21.0-51.0); MEAN CORPUSCULAR HGB CONC 32.9 g/dL (33.0-35.0); MEAN PLATELET VOLUME 8.5 fL (7.4-11.0); MONOCYTES # (AUTO) 0.7 x10^3/uL (0.3-0.8); NEUTROPHILS % (AUTO) 67.3 % (42.0-75.0); PLATELET COUNT 259 X10^3/uL (150.0-450.0); RED BLOOD COUNT 4.38 X10^6/uL (3.5-5.4); RED CELL DISTRIBUTION WIDTH 15.4 % (11.6-16.5); WHITE BLOOD COUNT 7.4 X10^3/uL (3.6-10.0)
[2017-05-11 02:34] LABS: BLOOD UREA NITROGEN 12 mg/dL (7-18); CALCIUM 8.6 mg/dL (8.5-10.1); CARBON DIOXIDE 28.9 mmol/L (21-32); CHLORIDE 105 mmol/L (98-107); COR NA(FOR HYPERGLY) 141 mmol/L (136-145); CREATININE 0.74 mg/dL (0.55-1.02); SODIUM 141 mmol/L (136-145); eGFR BLACK RACES > 60 (>60); eGFR NON BLACK RACES > 60 (>60)
== END 2017-05-11 03:02 | disposition home or self-care (01) ==
LOC: ER 00:38
DX: R20.0 Anesthesia of skin (principal); Z00.6 Encounter for examination for normal comparison and control in clinical research program
CPT/HCPCS: 36415; 80048; 85025; 99282

== ENCOUNTER 2017-06-26 06:45 | Emergency (ER) | payer OTHER ==
[2017-06-26 06:48] VITALS: BP 115/63; BMI 40.7
--- NOTE | 2017-06-26 07:03 | DR.GENAD ---
HPI - PCP Primary Care Physician: nfd - Complaint/Symptoms Chief Complaint Doctors Comments: Patient admits to sore thorat for cough for three days. She admits to cough and congestion. Denies diarrhea or fever. Chief Complaint:: PT C/O SORE THROAT AND BAD COUGH THAT SHE HAS HAD FOR 3 DAYS. PT DENIES FEVER - Source History Provided: Patient - Mode of Arrival Mode of Arrival: Ambulatory - Timing Onset of Chief Complaint: 06/23/17 PMH - PMH Past Medical History: Yes Past Medical History: GERD Past Surgical History: Yes Surgical History: Ortho Surgery - Family History History of Family Medical Conditions: Yes Family Medical History: Diabetes Mellitus, Cancer, [place], Coronary Artery Disease, Heart Failure, Sudden Cardiac , Hypertension - Social History Does any household member use tobacco: No Alcohol Use: Occasionally Do you use any recreational Drugs:: No Lives With: Family Lives Where: Home - infectious screening In the last 2 months have you had wt loss of >10#?: NO Have you had fever, night sweats or hemotysis?: No Have you traveled outside the country in the last 6 months?: No Isolation: Standard ROS - Review of Systems Eyes: No Symptoms Reported ENTM: No Symptoms Reported Respiratoy: No Symptoms Reported Cardiovascular: No Symptoms Reported Gastrointestinal/Abdominal: No Symptoms Reported Genitourinary: No Symptoms Reported PE - Vital Signs Vitals: Temperature 97.7 F Pulse Rate 104 Respiratory Rate 20 Blood Pressure [Right Arm] 111/79 Blood Pressure 115/63 O2 Sat by Pulse Oximetry 99 - General Limitations: No Limitations General Appearance: Alert, In No Apparent Distress - Head Head Exam: Normal Inspection, Atraumatic - Eyes Eye exam: Normal Appearance, PERRL, EOMI - ENT ENT Exam: Normal Exam External Ear Exam: Normal External Inspection TM/Canal Exam: Bilateral Normal Nose Exam: Normal Nose Exam Mouth Exam: Normal Inspection Throat Exam: Normal Inspection - Neck Neck Exam: Normal Inspection, Full ROM - Chest Chest Inspection: Normal Inspection, Symmetric Chest Wall Rise - Respiratory Respiratory Exam: Normal Lung Sounds Bilat Respiratory Exam: Bilateral Clear to Auscultation - Cardiovascular Cardiovascular Exam: Regular Rate - Abdominal Exam Abdominal Exam: Normal Inspection, Normal Bowel Sounds Abdominal Tenderness: negative: RUQ, RLQ, LUQ, LLQ, Epigastrium, Suprapubic, Diffuse, Mild, Moderate, Severe, Other - Extremities Extremities Exam: Normal Inspection - Back Back Exam: Normal Inspection, Full ROM - Neurologic Neurological Exam: Alert, Oriented X3, CN II-XII Intact - Psychiatric Psychiatric Exam: Normal Affect - Skin Skin Exam: Warm, Dry, Intact ROR - Labs Reviewed Laboratory Results Reviewed?: Yes (strep negative) Laboratory: S. pyogenes (TEM-PCR) Not detected (NOT DETECT) 06/26/17 07:02 - Diagnosis Discharge Problem: Pharyngitis Qualifiers: Pharyngitis/tonsillitis etiology: unspecified etiology Qualified Code(s): J02.9 - Acute pharyngitis, unspecified URI (upper respiratory infection) Qualifiers: URI type: unspecified viral URI Qualified Code(s): J06.9 - Acute upper respiratory infection, unspecified - Discharge Plan Condition: Stable - Follow ups/Referrals Follow ups/Referrals: NFD,None [Primary Care Provider] - 3 days - Instructions
== END 2017-06-26 08:17 | disposition home or self-care (01) ==
LOC: ER 06:45
DX: J02.9 Acute pharyngitis, unspecified (principal); J06.9 Acute upper respiratory infection, unspecified
CPT/HCPCS: 87651; 99282

== ENCOUNTER 2022-09-06 19:44 | Observation (INO) ==
[2022-09-06] MEDS ORDERED: NS 1,000 ML IV 1,000 ML IV ONE ×3 (19:57→22:13)
[2022-09-06] MEDS ORDERED: ZOFRAN INJ 4 MG VIAL IVP ONE (19:57)
[2022-09-06] MEDS ORDERED: NS 1,000 ML IV 1,000 ML ONE ×2 (19:59→21:44)
[2022-09-06] MEDS ORDERED: ZOFRAN INJ 4 MG VIAL ONE (19:59)
[2022-09-06 20:15] LABS: BASOPHILS % (AUTO) 0.3 % (0.2-1.0); EOSINOPHILS # (AUTO) 0.1 x10^3/uL (0.0-0.2); EOSINOPHILS % (AUTO) 0.6 % (0.9-2.9); HEMATOCRIT 42.7 % (36.0-47.0); HEMOGLOBIN 14.5 g/dL (12.0-16.0); LYMPHOCYTES % (AUTO) 9.1 % (21.0-51.0); MEAN CORPUSCULAR HEMOGLOBIN 29.9 pg (27.0-34.0); MEAN CORPUSCULAR VOLUME 87.9 fL (80.0-100.0); MEAN PLATELET VOLUME 8.8 fL (7.4-11.0); MONOCYTES # (AUTO) 0.5 x10^3/uL (0.3-0.8); MONOCYTES % (AUTO) 4.5 % (0.0-13.0); NEUTROPHILS # (AUTO) 9.7 x10^3/uL (2.2-4.8); NEUTROPHILS % (AUTO) 85.5 % (42.0-75.0); PLATELET COUNT 263 X10^3/uL (150.0-450.0); RED BLOOD COUNT 4.86 X10^6/uL (3.5-5.4); RED CELL DISTRIBUTION WIDTH 13.3 % (11.6-16.5); WHITE BLOOD COUNT 11.3 X10^3/uL (3.6-10.0)
[2022-09-06 20:24] LABS: ALANINE AMINOTRANSFERASE 23 Units/L (12-78); ALBUMIN 4.6 g/dL (3.4-5.0); ALKALINE PHOSPHATASE 76 Units/L (46-116); ASPARTATE AMINO TRANSFERASE 36 Units/L (15-37); BLOOD UREA NITROGEN 7 mg/dL (7-18); CALCIUM 9.2 mg/dL (8.5-10.1); CARBON DIOXIDE 23.8 mmol/L (21-32); CHLORIDE 104 mmol/L (98-107); COR NA(FOR HYPERGLY) 140 mmol/L (136-145); CREATININE 0.78 mg/dL (0.55-1.02); GLUCOSE 148 mg/dL (65-99); SERUM PREGNANCY TEST, QUAL NEGATIVE <10 mIU/mL; SODIUM 139 mmol/L (136-145); TOTAL PROTEIN 7.6 g/dL (6.4-8.2); eGFR NON BLACK RACES > 60 (>60)
[2022-09-06 20:28] LABS: PLATELET MORPHOLOGY COMMENT NORMAL (NORMAL)
--- NOTE | 2022-09-06 20:28 | DR.NAUSEAF ---
HPI Time Seen Time Seen by Provider: 09/06/22 19:55 Primary Care Physician Primary Care Physician: kelly HPI Comment HPI Comment: Pt was seen here early on .Left AMA and now returns again with same symptoms that are worsening with increased vomiting and dairrhea Complaints Chief Complaint Doctors Comments: vomiting and diarrhea Chief Complaint:: pt c/o n/v/d pt states" I think I have campy again I feel the same way I did before" COVID-19 Coronavirus risk:travel/contact w/high risk person: No Has patient experienced Coronavirus symptoms: No Source History Provided: Patient Mode of Arrival Mode of Arrival: Ambulatory Timing Onset of Chief Complaint: 09/06/22 PMH PMH Past Medical History: No Past Medical History: Anxiety, Depression and Kidney Stones Past Surgical History: Yes Surgical History: Ortho Surgery Family History History of Family Medical Conditions: Yes Family Medical History: [place], Coronary Artery Disease and Hypertension Social History Does patient currently use any type of tobacco product: No Have you used tobacco products in the last 12 months: No Type of Tobacco Use: None Does any household member use tobacco: No Alcohol Use: None Do you use any recreational Drugs:: No Lives With: Family Lives Where: Home Travel Risk Coronavirus risk:travel/contact w/high risk person: No Has patient experienced Coronavirus symptoms: No Infectious screening In the last 2 months have you had wt loss of >10#?: NO Have you had fever, night sweats or hemotysis?: No Have you traveled outside the country in the last 6 months?: No Isolation: Standard ROS Review of Systems Constitutional: Malaise, Fatigue and Loss of Appetite Eyes: No Symptoms Reported ENTM: No Symptoms Reported Respiratoy: No Symptoms Reported Cardiovascular: No Symptoms Reported Gastrointestinal/Abdominal: Diarrhea and Vomiting Genitourinary: No Symptoms Reported Neurological: No Symptoms Reported Musculoskeletal: No Symptoms Reported Integumentary: No Symptoms Reported Hematologic/Lymphatic: No Symptoms Reported Endocrine: No Symptoms Reported PE Vital Signs Vitals: Temperature 97.8 F Pulse Rate 58 Respiratory Rate 18 Blood Pressure [Right Arm] 132/86 Blood Pressure 135/67 O2 Sat by Pulse Oximetry 100 General Limitations: No Limitations General Appearance: Alert and Anxious Head Head Exam: Normal Inspection, Atraumatic and Normocephalic Eyes Eye exam: PERRL ENT ENT Exam: Mucous Membranes Dry Neck Neck Exam: Normal Inspection Chest Chest Inspection: Normal Inspection and Symmetric Chest Wall Rise Respiratory Respiratory Exam: Normal Lung Sounds Bilat Respiratory Exam: Bilateral: Clear to Auscultation Cardiovascular Cardiovascular Exam: +S1 and +S2 Abdominal Exam Abdominal Exam: Soft, Tenderness and Hyperactive Bowel Sounds Abdominal Tenderness: Diffuse and Mild Neurologic Neurological Exam: Alert Skin Skin Exam: Normal Color MDM Additional Information Obtained Additional Information Obtained From: Old Records Differential Diagnosis Differential Diagnosis: Considerations may Include:: Drug Toxicity, Food Poisoning, Gastroenteritis, Pancreatitis and COURSE Treatment Treatment: labs ,IV fluids ,IV zofran ,promethazine Reevaluation 1st: Worsened ROR Labs Reviewed Result Diagrams: 09/06/22 20:05 09/06/22 20:05 Laboratory: 09/06/22 20:38 Stool - Final WBC 11.3 X10^3/uL (3.6-10.0) H 09/06/22 20:05 RBC 4.86 X10^6/uL (3.5-5.4) 09/06/22 20:05 Hgb 14.5 g/dL (12.0-16.0) 09/06/22 20:05 Hct 42.7 % (36.0-47.0) 09/06/22 20:05 MCV 87.9 fL (80.0-100.0) 09/06/22 20:05 MCH 29.9 pg (27.0-34.0) 09/06/22 20:05 MCHC 34.0 g/dL (33.0-35.0) 09/06/22 20:05 RDW 13.3 % (11.6-16.5) 09/06/22 20:05 Plt Count 263 X10^3/uL (150.0-450.0) 09/06/22 20:05 Plt Count Comment Adequate (ADEQUATE) 09/06/22 20:05 MPV 8.8 fL (7.4-11.0) 09/06/22 20:05 Neut % (Auto) 85.5 % (42.0-75.0) H 09/06/22 20:05 Lymph % (Auto) 9.1 % (21.0-51.0) L 09/06/22 20:05 [place] % (Auto) 4.5 % (0.0-13.0) 09/06/22 20:05 Eos % (Auto) 0.6 % (0.9-2.9) L 09/06/22 20:05 Baso % (Auto) 0.3 % (0.2-1.0) 09/06/22 20:05 Neut # (Auto) 9.7 x10^3/uL (2.2-4.8) H 09/06/22 20:05 Lymph # (Auto) 1.0 X10^3/uL (1.3-2.9) L 09/06/22 20:05 [place] # (Auto) 0.5 x10^3/uL (0.3-0.8) 09/06/22 20:05 Eos # (Auto) 0.1 x10^3/uL (0.0-0.2) 09/06/22 20:05 Baso # (Auto) 0.0 X10^3/uL (0.0-0.1) 09/06/22 20:05 Absolute Nucleated RBC 0.2 /100WBC 09/06/22 20:05 Plt Morphology Comment Normal (NORMAL) 09/06/22 20:05 RBC Morphology Normal (NORMAL) 09/06/22 20:05 Sodium 139 mmol/L (136-145) 09/06/22 20:05 Corrected Sodium 140 mmol/L (136-145) 09/06/22 20:05 Potassium 4.0 mmol/L (3.5-5.1) 09/06/22 20:05 Chloride 104 mmol/L (98-107) 09/06/22 20:05 Carbon Dioxide 23.8 mmol/L (21-32) 09/06/22 20:05 BUN 7 mg/dL (7-18) 09/06/22 20:05 Creatinine 0.78 mg/dL (0.55-1.02) 09/06/22 20:05 Est GFR (MDRD) Af Amer > 60 (>60) 09/06/22 20:05 Est GFR (MDRD) Non-Af > 60 (>60) 09/06/22 20:05 Glucose 148 mg/dL (65-99) H 09/06/22 20:05 Calcium 9.2 mg/dL (8.5-10.1) 09/06/22 20:05 Corrected Calcium TNP 09/06/22 20:05 Total Bilirubin 0.70 mg/dL (0.2-1.0) 09/06/22 20:05 AST 36 Units/L (15-37) 09/06/22 20:05 ALT 23 Units/L (12-78) 09/06/22 20:05 Alkaline Phosphatase 76 Units/L (46-116) 09/06/22 20:05 Total Protein 7.6 g/dL (6.4-8.2) 09/06/22 20:05 Albumin 4.6 g/dL (3.4-5.0) 09/06/22 20:05 Globulin 3.0 g/dL (2.5-4.5) 09/06/22 20:05 Albumin/Globulin Ratio 1.5 Ratio (1.1-2.1) 09/06/22 20:05 Lipase 69 Units/L (73-393) L 09/06/22 20:05 HCG, Qual Negative <10 mIU/mL 09/06/22 20:05 Specimen Type Clean catch urine 09/06/22 20:38 Urine Color Brown (YELLOW) 09/06/22 20:38 Urine Appearance Cloudy (CLEAR) 09/06/22 20:38 Urine pH 6.0 (5.0 - 8.0) 09/06/22 20:38 Ur Specific [place] 1.025 (1.000-1.030) 09/06/22 20:38 Urine Protein 3+ (NEGATIVE) 09/06/22 20: Urine Glucose (UA) Negative (NEGATIVE) 09/06/22 20: Urine Ketones 4+ (NEGATIVE) 09/06/22 20: Urine Blood 5+ (NEGATIVE) 09/06/22: Urine Nitrite Positive (NEGATIVE) 09/06/22 20:38 Urine Bilirubin Negative (NEGATIVE) 09/06/22 20:38 Urine Urobilinogen 1+ (NORMAL) 09/06/22 20:38 Ur Leukocyte Esterase 1+ (NEGATIVE) 09/06/22 20: Urine RBC 10-20 /HPF (0-3) A 09/06/22 20:38 Urine WBC 0-2 /HPF (0-5) 09/06/22 20:38 Ur Squamous Epith Cells Few /HPF (NEGATIVE) 09/06/22 20: Amorphous Sediment 1+ /HPF (NEGATIVE) 09/06/22 20:38 Urine Bacteria 3+ /HPF (NEGATIVE) 09/06/22 20:38 Coarse Granular Casts Rare /HPF (NEGATIVE) 09/06/22 20:38 Urine Mucus Few /HPF (NEGATIVE) 09/06/22 20:38 Ur Culture Indicated? Yes/culture set up 09/06/22 20:38 Stl Occult Blood (IFOB) Positive (NEGATIVE) A 09/06/22 20:38 Stool for White Cells Positive (NEGATIVE) A 09/06/22 20:38 Stool H. pylori Ag Negative (NEGATIVE) 09/06/22 20:38 Urine Opiates Screen Negative (NEG=<300) 09/06/22 20:38 Urine Methadone Screen Negative (NEG=<300) 09/06/22 20:38 Ur Barbiturates Screen Negative (NEG=<200) 09/06/22 20:38 Ur Phencyclidine Scrn Negative (NEG=<25) 09/06/22 20:38 Ur Amphetamines Screen Negative (NEG=<1000) 09/06/22 20:38 U Benzodiazepines Scrn Negative (NEG=<200) 09/06/22 20:38 Urine Cocaine Screen Negative (NEG=<300) 09/06/22 20:38 U Marijuana (THC) Screen Positive (NEG=<50) A 09/06/22 20:38 Cryptosporid parvum Ag Negative (NEGATIVE) 09/06/22 20:38 Giardia lamblia Ag Negative (NEGATIVE) 09/06/22 20:38 Opioid Opioid Risk Tool Age (Anderson box if 16-45): No History of Preadolescent Sexual Abuse: No Total: 0 Total Score Risk Category: Low Risk Copyright: Germán GUNDERSON predicting aberrant behaviors Discharge Plan Diagnosis Discharge Problem: Gastroenteritis, Campylobacter gastroenteritis, Vomiting, Acute dehydration, Marijuana use Discharge Plan Patient Disposition: 09 ADMITTED INPATIENT Condition: Stable Prescriptions: No Action loperamide [Ultra A-D] 2 mg tablet 2 mg PO QID PRNQty: 20 0RF ondansetron 8 mg tablet,disintegrating 8 mg PO Q8H PRNQty: 15 0RF azithromycin [Zithromax Z-Damir] 250 mg tablet See Rx Instructions .ROUTE .COMPLEX Qty: 6 0RF Rx Instructions: For 250 mg dose pack: take 500 mg today (day 1), then 250 mg for 4 days (days 2-5) Health Concerns: Post Hospitalization: new medications and changes needed to prevent readmission or further decline. Pt educated and given instructions on all concerns. Plan of Treatment: Continue with present treatment and follow up plan. Pt is to keep follow up appointment as instructed and take medications as ordered. Orders to Discharge Patient Discharge Orders: Transfer (Routine); Ordered 09/06/22 Ordered By: Milan Kaur Follow ups/Referrals Follow ups/Referrals: KAVITA ANNE [Primary Care Provider] - 3 days ADDITIONAL NOTES Additional Notes Additional Notes: spoke with Dr Corbett ,agreed to admit patient
[2022-09-06] MEDS ORDERED: PHENERGAN INJ 25 MG IM ONE ×2 (20:37→20:40)
[2022-09-06] MEDS ORDERED: BENTYL I.M. INJ 10 MG IM ONE ×2 (20:38→20:40)
[2022-09-06 21:16] LABS: BILIRUBIN,URINE NEGATIVE (NEGATIVE); BLOOD/HEMOGLOBIN,URINE 5+ (NEGATIVE); GLUCOSE, URINE NEGATIVE (NEGATIVE); KETONES,URINE 4+ (NEGATIVE); LEUKOCYTE ESTERASE ,URINE 1+ (NEGATIVE); NITRITES,URINE POSITIVE (NEGATIVE); PROTEIN,URINE 3+ (NEGATIVE); UROBILINOGEN,URINE 1+ (NORMAL)
[2022-09-06 21:19] LABS: APPEARANCE,URINE CLOUDY (CLEAR); COLOR,URINE BROWN (YELLOW)
[2022-09-06 21:20] LABS: BACTERIA,URINE 3+ /HPF (NEGATIVE); COARSE GRANULAR CASTS,URINE RARE /HPF (NEGATIVE); SQUAMOUS EPITHELIAL CELL,UR FEW /HPF (NEGATIVE)
[2022-09-06 21:26] LABS: CRYPTOSPORIDIUM PARVUM ANTIGEN NEGATIVE (NEGATIVE); GIARDIA LAMBLIA ANTIGEN NEGATIVE (NEGATIVE)
[2022-09-06] MEDS ORDERED: COMPAZINE INJ ONE (21:38)
[2022-09-06] MEDS ORDERED: COMPAZINE INJ IVP ONE (21:43)
[2022-09-06] MEDS: AMBIEN PO PRN (23:05)
[2022-09-06 23:31] VITALS: BMI 36.2
[2022-09-07] MEDS ORDERED: ZOFRAN INJ 4 MG VIAL IVP PRN (03:03)
[2022-09-07] MEDS ORDERED: ZOFRAN INJ 4 MG VIAL ONE (03:10)
[2022-09-07] MEDS: COMPAZINE INJ IVP SCH ×4 (04:15→20:12)
[2022-09-07 06:02] LABS: BASOPHILS % (AUTO) 0.2 % (0.2-1.0); HEMATOCRIT 42.4 % (36.0-47.0); HEMOGLOBIN 14.3 g/dL (12.0-16.0); LYMPHOCYTES # (AUTO) 0.5 X10^3/uL (1.3-2.9); LYMPHOCYTES % (AUTO) 7.4 % (21.0-51.0); MEAN CORPUSCULAR HGB CONC 33.8 g/dL (33.0-35.0); MEAN CORPUSCULAR VOLUME 88.6 fL (80.0-100.0); MONOCYTES # (AUTO) 0.2 x10^3/uL (0.3-0.8); MONOCYTES % (AUTO) 3.1 % (0.0-13.0); NEUTROPHILS # (AUTO) 6.5 x10^3/uL (2.2-4.8); NEUTROPHILS % (AUTO) 89.3 % (42.0-75.0); PLATELET COUNT 230 X10^3/uL (150.0-450.0); RED BLOOD COUNT 4.78 X10^6/uL (3.5-5.4); RED CELL DISTRIBUTION WIDTH 13.3 % (11.6-16.5); WHITE BLOOD COUNT 7.3 X10^3/uL (3.6-10.0)
[2022-09-07 06:18] LABS: ALANINE AMINOTRANSFERASE 23 Units/L (12-78); ALBUMIN 4.4 g/dL (3.4-5.0); ALKALINE PHOSPHATASE 73 Units/L (46-116); ASPARTATE AMINO TRANSFERASE 18 Units/L (15-37); BLOOD UREA NITROGEN 6 mg/dL (7-18); CALCIUM 8.5 mg/dL (8.5-10.1); CARBON DIOXIDE 22.1 mmol/L (21-32); CHLORIDE 105 mmol/L (98-107); COR NA(FOR HYPERGLY) 142 mmol/L (136-145); CREATININE 0.62 mg/dL (0.55-1.02); GLUCOSE 131 mg/dL (65-99); POTASSIUM 3.6 mmol/L (3.5-5.1); SODIUM 141 mmol/L (136-145); TOTAL PROTEIN 7.6 g/dL (6.4-8.2); eGFR NON BLACK RACES > 60 (>60)
[2022-09-07] MEDS ORDERED: POTASSIUM CHL 60 MEQ/NS 0.45% 500 ML IV PRN (06:32)
[2022-09-07] MEDS ORDERED: POTASSIUM CHLORIDE LIQ 20 MEQ UDC PO PRN (06:32)
[2022-09-07] MEDS ORDERED: K-RIDER 10 MEQ/NS 100 ML 10 MEQ/100 ML BAG IV PRN (06:32)
[2022-09-07] MEDS ORDERED: K-DUR TAB 20 MEQ PO PRN (06:32)
[2022-09-07] MEDS ORDERED: KLOR-CON PO PRN (06:32)
[2022-09-07] MEDS ORDERED: MICRO K EXTEN CAP 10 MEQ PO PRN (06:32)
[2022-09-07] MEDS ORDERED: POTASSIUM CHL 40 MEQ/NS 0.45% 500 ML IV PRN (06:32)
[2022-09-07] MEDS: MAGNESIUM SULFATE 1 GRAM/100 mL PREMIX 1 G/100 ML BAG IV PRN ×2 (10:48→15:44)
[2022-09-07] MEDS: LEVAQUIN PREMIX IV 500 MG 500 MG/100 ML BAG IV SCH (12:20)
[2022-09-07] MEDS: ZITHROMAX TAB 250 MG PO SCH (14:20)
--- NOTE | 2022-09-07 15:18 | DR.H&P ---
H&P History & Physical for Day of: H&P Date: 09/07/22 Chief Complaint Chief Complaint: Nausea vomiting and diarrhea. Allergies Allergies Allergy/AdvReac Type Severity Reaction Status Date / Time No Known Drug Allergies Allergy Unknown Verified 09/06/22 17:03 History of Present Illness History of Present Illness: This is a 27-year-old white female who presented to the emergency department last night complaining of nausea vomiting and diarrhea since she woke up yesterday morning. She reports that it feels like she did when she had Campylobacter jejuni a month ago. She took a Z-Damir for treatment at that time and got better however her symptoms have returned. She initially went to the emergency department yesterday afternoon and left after a short while but got sicker after she left AMA the first time. She came back with worsening of symptoms so we decided to admit her. Stool work-up was done and showed she had white blood cells and red blood cells in the stool. Cultures currently pending. She has some fever as well. White blood cell count was slig htly elevated at 11,300. Patient also has had intractable nausea and vomiting since yesterday. She continues to have this morning and continues to have diarrhea. I will go ahead and start her on IV Levaquin 500 mg daily along with a Z-Damir p.o. She reports she cannot take it on him stomach but wants to try the [place] so we will let her have a regular diet and take her antibiotics with meals. Past Medical History Past Medical History: Anxiety, Depression and Kidney Stones Past Surgical History Surgical History: Ortho Surgery Family History Family Medical History: Diabetes Mellitus and Hypertension Social History Does patient currently use any type of tobacco product: Yes Have you used tobacco products in the last 12 months: Yes Type of Tobacco Use: Cigarettes How many years tobacco product used: 10 Does any household member use tobacco: Yes Alcohol Use: None Drug Use: Marijuana Medications Home Medications: No Known Drug Allergies Allergy (Unknown, Verified 09/06/22 17:03) CONTINUE taking the following medications docusate sodium 100 mg capsule (Colace) 100 mg PO BID 09/06/22 [History] Labs Result Diagrams: 09/07/22 05:12 09/07/22 05:12 Labs: 09/06/22 20:38 Stool - Final Laboratory WBC 7.3 X10^3/uL (3.6-10.0) 09/07/22 05:12 RBC 4.78 X10^6/uL (3.5-5.4) 09/07/22 05:12 Hgb 14.3 g/dL (12.0-16.0) 09/07/22 05:12 Hct 42.4 % (36.0-47.0) 09/07/22 05:12 MCV 88.6 fL (80.0-100.0) 09/07/22 05:12 MCH 30.0 pg (27.0-34.0) 09/07/22 05:12 MCHC 33.8 g/dL (33.0-35.0) 09/07/22 05:12 RDW 13.3 % (11.6-16.5) 09/07/22 05:12 Plt Count 230 X10^3/uL (150.0-450.0) 09/07/22 05:12 Plt Count Comment Adequate (ADEQUATE) 09/06/22 20:05 MPV 9.0 fL (7.4-11.0) 09/07/22 05:12 Neut % (Auto) 89.3 % (42.0-75.0) H 09/07/22 05:12 Lymph % (Auto) 7.4 % (21.0-51.0) L 09/07/22 05:12 [place] % (Auto) 3.1 % (0.0-13.0) 09/07/22 05:12 Eos % (Auto) 0.0 % (0.9-2.9) L 09/07/22 05:12 Baso % (Auto) 0.2 % (0.2-1.0) 09/07/22 05:12 Neut # (Auto) 6.5 x10^3/uL (2.2-4.8) H 09/07/22 05:12 Lymph # (Auto) 0.5 X10^3/uL (1.3-2.9) L 09/07/22 05:12 [place] # (Auto) 0.2 x10^3/uL (0.3-0.8) L 09/07/22 05:12 Eos # (Auto) 0.0 x10^3/uL (0.0-0.2) 09/07/22 05:12 Baso # (Auto) 0.0 X10^3/uL (0.0-0.1) 09/07/22 05:12 Absolute Nucleated RBC 0.0 /100WBC 09/07/22 05:12 Plt Morphology Comment Normal (NORMAL) 09/06/22 20:05 RBC Morphology Normal (NORMAL) 09/06/22 20:05 Sodium 141 mmol/L (136-145) 09/07/22 05:12 Corrected Sodium 142 mmol/L (136-145) 09/07/22 05:12 Potassium 3.6 mmol/L (3.5-5.1) 09/07/22 05:12 Chloride 105 mmol/L (98-107) 09/07/22 05:12 Carbon Dioxide 22.1 mmol/L (21-32) 09/07/22 05:12 BUN 6 mg/dL (7-18) L 09/07/22 05:12 Creatinine 0.62 mg/dL (0.55-1.02) 09/07/22 05:12 Est GFR (MDRD) Af Amer > 60 (>60) 09/07/22 05:12 Est GFR (MDRD) Non-Af > 60 (>60) 09/07/22 05:12 Glucose 131 mg/dL (65-99) H 09/07/22 05:12 Calcium 8.5 mg/dL (8.5-10.1) 09/07/22 05:12 Corrected Calcium TNP 09/07/22 05:12 Magnesium 1.7 mg/dL (2.0-2.9) L 09/07/22 05:12 Total Bilirubin 0.60 mg/dL (0.2-1.0) 09/07/22 05:12 AST 18 Units/L (15-37) 09/07/22 05:12 ALT 23 Units/L (12-78) 09/07/22 05:12 Alkaline Phosphatase 73 Units/L (46-116) 09/07/22 05:12 Total Protein 7.6 g/dL (6.4-8.2) 09/07/22 05:12 Albumin 4.4 g/dL (3.4-5.0) 09/07/22 05:12 Globulin 3.2 g/dL (2.5-4.5) 09/07/22 05:12 Albumin/Globulin Ratio 1.4 Ratio (1.1-2.1) 09/07/22 05:12 Lipase 69 Units/L (73-393) L 09/06/22 20:05 HCG, Qual Negative <10 mIU/mL 09/06/22 20:05 Specimen Type Clean catch urine 09/06/22 20:38 Urine Color Brown (YELLOW) 09/06/22 20: Urine Appearance Cloudy (CLEAR) 09/06/22 20: Urine pH 6.0 (5.0 - 8.0) 09/06/22 20:38 Ur Specific [place] 1.025 (1.000-1.030) 09/06/22 20: Urine Protein 3+ (NEGATIVE) 09/06/22 20: Urine Glucose (UA) Negative (NEGATIVE) 09/06/22 20: Urine Ketones 4+ (NEGATIVE) 09/06/22 20: Urine Blood 5+ (NEGATIVE) 09/06/22 20:38 Urine Nitrite Positive (NEGATIVE) 09/06/22 20: Urine Bilirubin Negative (NEGATIVE) 09/06/22 20:38 Urine Urobilinogen 1+ (NORMAL) 09/06/22 20:38 Ur Leukocyte Esterase 1+ (NEGATIVE) 09/06/22 20:38 Urine RBC 10-20 /HPF (0-3) A 09/06/22 20: Urine WBC 0-2 /HPF (0-5) 09/06/22 20:38 Ur Squamous Epith Cells Few /HPF (NEGATIVE) 09/06/22 20:38 Amorphous Sediment 1+ /HPF (NEGATIVE) 09/06/22 20: Urine Bacteria 3+ /HPF (NEGATIVE) 09/06/22 20:38 Coarse Granular Casts Rare /HPF (NEGATIVE) 09/06/22 20:38 Urine Mucus Few /HPF (NEGATIVE) 09/06/22 20:38 Ur Culture Indicated? Yes/culture set up 09/06/22 20: Stl Occult Blood (IFOB) Positive (NEGATIVE) A 09/06/22 20: Stool for White Cells Positive (NEGATIVE) A 09/06/22 20: Stool H. pylori Ag Negative (NEGATIVE) 09/06/22 20:38 Urine Opiates Screen Negative (NEG=<300) 09/06/22 20: Urine Methadone Screen Negative (NEG=<300) 09/06/22 20:38 Ur Barbiturates Screen Negative (NEG=<200) 09/06/22 20:38 Ur Phencyclidine Scrn Negative (NEG=<25) 09/06/22 20:38 Ur Amphetamines Screen Negative (NEG=<1000) 09/06/22 20:38 U Benzodiazepines Scrn Negative (NEG=<200) 09/06/22 20:38 Urine Cocaine Screen Negative (NEG=<300) 09/06/22 20:38 U Marijuana (THC) Screen Positive (NEG=<50) A 09/06/22 20:38 Cryptosporid parvum Ag Negative (NEGATIVE) 09/06/22 20:38 Giardia lamblia Ag Negative (NEGATIVE) 09/06/22 20:38 Review of Systems Constitutional: Fever, Chills, Weakness and Malaise Eyes: No Symptoms Reported ENT: No Symptoms Reported Respiratory: No Symptoms Reported Cardiovascular: No Symptoms Reported Gastrointestinal: Nausea, Vomiting, Abdominal Pain and Diarrhea Genitourinary: No Symptoms Reported Musculoskeletal: No Symptoms Reported Skin: No Symptoms Reported Neurological: No Symptoms Reported Physical Exam Vital Signs: Temperature 99.1 F Pulse Rate [Left Radial] 76 Pulse Rate 58 Respiratory Rate 18 Blood Pressure [Left Arm] 133/60 Blood Pressure [Right Arm] 132/66 Blood Pressure 135/67 O2 Sat by Pulse Oximetry 100 Oriented: Normal Eyes: Normal Ear: Normal Nose: Normal Throat: Normal Respiratory: Clear Throughout Cardiovascular: Normal : Normal Auscultation: Bowel Sounds: Increased Palpation: Normal Tenderness: Diffuse Skin: Normal Musculoskeletal: Normal Psychiatric: Normal Mood Description: Calm Affect: Normal Speech Pattern: Clear and Appropriate Assessment/Plan (1) Campylobacter jejuni food poisoning: Status: Acute (2) Nausea vomiting and diarrhea: Status: Acute Plan: IV fluid, Zofran for nausea and vomiting. We would not give her anything to slow the diarrhea down now as we will do GI try to flush itself out. Follow-up with stool culture when available. Review H&P Reviewed: Yes Patient was examined?: Yes
[2022-09-07] MEDS: NICOTINE PATCH TD SCH (15:24)
[2022-09-07] MEDS ORDERED: NICOTINE PATCH TD ONE (15:31)
[2022-09-07] MEDS: AMBIEN PO PRN (20:12)
[2022-09-08] MEDS: COMPAZINE INJ IVP SCH ×3 (02:53→15:00)
[2022-09-08 06:00] LABS: BASOPHILS % (AUTO) 0.3 % (0.2-1.0); EOSINOPHILS % (AUTO) 0.2 % (0.9-2.9); HEMATOCRIT 37.8 % (36.0-47.0); HEMOGLOBIN 12.9 g/dL (12.0-16.0); LYMPHOCYTES # (AUTO) 2.6 X10^3/uL (1.3-2.9); LYMPHOCYTES % (AUTO) 38.3 % (21.0-51.0); MEAN CORPUSCULAR VOLUME 88.2 fL (80.0-100.0); MEAN PLATELET VOLUME 8.7 fL (7.4-11.0); MONOCYTES # (AUTO) 0.7 x10^3/uL (0.3-0.8); MONOCYTES % (AUTO) 10.5 % (0.0-13.0); NEUTROPHILS # (AUTO) 3.4 x10^3/uL (2.2-4.8); NEUTROPHILS % (AUTO) 50.7 % (42.0-75.0); PLATELET COUNT 222 X10^3/uL (150.0-450.0); RED BLOOD COUNT 4.29 X10^6/uL (3.5-5.4); RED CELL DISTRIBUTION WIDTH 13.5 % (11.6-16.5); WHITE BLOOD COUNT 6.8 X10^3/uL (3.6-10.0)
[2022-09-08 06:20] LABS: ALANINE AMINOTRANSFERASE 21 Units/L (12-78); ALBUMIN 3.6 g/dL (3.4-5.0); ALKALINE PHOSPHATASE 57 Units/L (46-116); ASPARTATE AMINO TRANSFERASE 19 Units/L (15-37); BLOOD UREA NITROGEN 8 mg/dL (7-18); CALCIUM 8.1 mg/dL (8.5-10.1); CARBON DIOXIDE 23.7 mmol/L (21-32); CHLORIDE 109 mmol/L (98-107); CREATININE 0.64 mg/dL (0.55-1.02); GLUCOSE 82 mg/dL (65-99); MAGNESIUM 2.3 mg/dL (2.0-2.9); POTASSIUM 3.7 mmol/L (3.5-5.1); SODIUM 142 mmol/L (136-145); TOTAL PROTEIN 6.3 g/dL (6.4-8.2); eGFR NON BLACK RACES > 60 (>60)
[2022-09-08] MEDS: NICOTINE PATCH TD SCH (09:26)
[2022-09-08] MEDS: LEVAQUIN PREMIX IV 500 MG 500 MG/100 ML BAG IV SCH (09:27)
[2022-09-08] MEDS: ZITHROMAX TAB 250 MG PO SCH (09:28)
[2022-09-08 17:56] VITALS: BP 116/72
== END 2022-09-08 15:45 | disposition home or self-care (01) ==
LOC: ER 19:44 → MED/SURG 19:44
PROVIDERS: ADMIT Family Medicine; ATTEND Internal Medicine
DX: F12.90 Cannabis use, unspecified, uncomplicated; R11.2 Nausea with vomiting, unspecified; E86.0 Dehydration; A04.5 Campylobacter enteritis; R19.7 Diarrhea, unspecified